=== PATIENT | male | born 1945 | race Caucasian/White ===

== ENCOUNTER 2016-12-19 08:51 | Emergency (ER) | payer MEDICARE ==
[2016-12-19] MEDS ORDERED: NORMAL SALINE 1,000 ML IV ONE (09:03)
[2016-12-19 09:19] LABS: Hematocrit 45.9 % (42.0-52.0); Mean Corpuscular Hemoglobin 27.1 pg (27-31); Mean Corpuscular Hgb Conc 32.7 g/dl (32-36); Mean Platelet Volume 9.3 fl (6.0-9.5); Neutrophil % 61.4 % (42-75.0); Platelet Count 185 K/mm3 (150-450); Red Blood Count 5.53 M/mm3 (4.7-6.0); Red Cell Distribution Width 15.2 % (11.5-14.0)
[2016-12-19 09:35] LABS: ALT 24 U/L (19-67); AST 16 U/L (0-48); Albumin * 3.8 gm/dl (3.4-5.0); Alkaline Phosphatase * 84 U/L (50-170); Anion Gap 13.1 mmol/L (6.8-13.8); BUN/Creatinine Ratio 26.9 (9.0-21.6); Bilirubin, Total 0.6 mg/dL (0.0-1.1); Blood Urea Nitrogen 28 mg/dL (6-23); Ca. Corrected For Albumin 8.7 mg/dL (8.4-10.2); Calcium * 8.9 mg/dL (7.9-10.9); Carbon Dioxide 28.3 mmol/L (24-32.6); Chloride 107 mmol/L (97-106); Glucose * 97 mg/dL (70-110); Potassium 4.4 mmol/L (3.4-4.6); Sodium 144 mmol/L (132-142)
[2016-12-19 09:36] LABS: Troponin I Less than 0.017 ng/ml (0.00-0.10)
[2016-12-19 11:42] LABS: Urine Bilirubin Negative (NEGATIVE); Urine Blood Negative /ul (NEGATIVE); Urine Ketone Negative (NEGATIVE); Urine Nitrite Negative (NEGATIVE); Urine Protein Negative (NEGATIVE); Urine Urobilinogen Normal (NORMAL); Urine pH 6.5 pH (5.0-7.0)
[2016-12-19 11:58] LABS: Urine Appearance Clear; Urine Bacteria None Seen; Urine Color Yellow; Urine RBC TRACE /hpf (0-5); Urine WBC None Seen /hpf (0-5)
[2016-12-19 12:26] VITALS: BP 111/81
--- NOTE | 2016-12-19 12:29 | ERNOTE ---
Medical Problem HPI - Narrative Date of Service: 12/19/16 - General Chief Complaint: General Assessment Time Seen by Provider: 12/19/16 08:59 Source: patient Exam Limitations: no limitations - Immun/Allergies/Home Medications Immunizations: IMMUNIZATION HX Immunizations Up to Date Yes History of Influenza Vaccine Yes Hx Pneumococcal Vaccination Yes - History of Present History Narrative: Patient presents to the ED after a brief episode of confusion. He had his relates that this am he had a short spell when he was confused. His thought it was because he was outside in the heat all day yesterday. The Sx are entirely resolved at this point. No vision changes, no N/T/W, no CP or SOB , no IVORY. no other associated Sx. Sx resolved on their own without therapy. now all Sx resolved. Otherwise felt fine yesterday. Timing: gone now Severity: mild Modifying Factors - (Improves): Present: other - nothing Modifying Factors - (Worsens): Present: other - nothing Review of Systems - Review of Systems Constitutional: Absent: fever EYE: Absent: vision changes Respiratory: Absent: shortness of breath Cardiology: Absent: chest pain Gastrointestinal/Abdominal: Absent: abdominal pain Genitourinary: Absent: dysuria Neurological: Absent: headache, dizziness/light-headedness, weakness, numbness, tingling - Patient's Past Medical History Patient History - Medical: No pertinent hx Patient History - Cardiac/Respiratory: No pertinent hx Patient History - Cancer: No Hx of Cancer Patient History - Surgical Procedures: Hernia Repair Patient History - Other: None - Social History Living Situations: spouse Abuse History: No History of abuse Psych History: No pertinent hx Smoking Status: Never smoker Have you smoked in the past 12 months: No Do you dip or chew tobacco: No Alcohol Use: none Drug Use: none - Immunizations Immunizations Up to Date: Yes Hx Pneumococcal Vaccination: Yes History of Influenza Vaccine: Yes Physical Exam - Physical Exam General Appearance: Present: alert, no apparent distress Eye Exam: Normal inspection: bilateral, PERRL: bilateral Ears, Nose, Throat: Present: normal ENT inspection Neck: Present: normal inspection Respiratory: Present: no respiratory distress, normal breath sounds, no accessory muscle use, lungs clear Cardiovascular/Chest: Present: regular rate, rhythm, normal peripheral pulses Gastrointestinal/Abdominal: Present: normal bowel sounds, nontender, nondistended, soft. 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 Absent: facial droop, motor weakness Skin Exam: Absent: skin rash ED Progress - Results and Orders Patient's Lab Results:: I have reviewed the patient's lab results. - Vital Signs Patient's Vital Signs:: I have reviewed the patient's vital signs. Vital Signs: Vital Signs 12/19/16 12/19/16 12/19/16 08:54 09:14 09:21 Temperature 36.8 C Pulse Rate 69 67 62 Respiratory 19 21 H 17 Rate Blood Pressure 167/89 153/84 153/84 O2 Sat by Pulse 92 92 91 Oximetry 12/19/16 12/19/16 12/19/16 09:28 09:43 09:59 Temperature Pulse Rate 62 65 59 L Respiratory 16 22 H 14 Rate Blood Pressure 131/78 O2 Sat by Pulse 94 93 94 Oximetry 12/19/16 11:49 Temperature Pulse Rate 58 L Respiratory 14 Rate Blood Pressure 124/80 O2 Sat by Pulse 94 Oximetry - EKG EKG read: Interp. by me EKG Comments: NSR rate 66. Non-specific ST/T wave changes. No STEMI. - CT/Ultrasound CT/Ultrasound Narrative: Head CT negative, official report reviewed. - Progress/Reassessment Chief Complaint: General Assessment Progress Note-Subjective: 12/19/16 12:28 All Sx resolved. NIH - 0. No clear etiology of the Sx. He declines hospital observation and understands risks and benefits. He requests to go home. I discussed warning signs and reasons to return as well as the need for close f/u. 12/19/16 12:28 Departure - Departure Clinical Impression: Transient confusion Disposition: Home self-care Condition: Stable Instructions: Confusion Additional Instructions: Rest. Fluids. Follow-up with a doctor for a re-check this week. Return here if you change your mind about being observed, develop fever, weakness, trouble with vision or if your condition worsens or changes in any way.
== END 2016-12-19 12:25 | disposition home or self-care (01) ==
LOC: ER 08:51
PROC: 0T9B7ZZ Drainage of Bladder, Via Natural or Artificial Opening (ICD-10-PCS; principal; 2016-12-19)
DX: R41.0 Disorientation, unspecified (principal)